=== PATIENT | female | born 1985 | race Caucasian/White ===

== ENCOUNTER → 2016-12-12 | Outpatient (CLI) | payer OTHER | LOC: BMCIMAGING 10:04 | PROVIDERS: ATTEND Physician Assistant | DX: M25.511 Pain in right shoulder (principal); M75.92 Shoulder lesion, unspecified, left shoulder ==

== ENCOUNTER → 2017-01-09 | Outpatient (CLI) | payer OTHER | LOC: BMCIMAGING 13:45 | PROVIDERS: ATTEND Physician Assistant | DX: M17.0 Bilateral primary osteoarthritis of knee (principal) ==

== ENCOUNTER → 2017-08-14 | Outpatient (CLI) | payer OTHER | LOC: BMCIMAGING 14:52 | PROVIDERS: ATTEND Orthopaedic Surgery | DX: M89.311 Hypertrophy of bone, right shoulder (principal); M41.84 Other forms of scoliosis, thoracic region ==